=== PATIENT | female | born 1950 | race Two or more races ===

== ENCOUNTER 2020-10-09 18:46 | Emergency (ER) | payer OTHER ==
[~2020-10-09] VITALS: Ht 167.6 cm; Wt 76.2 kg
--- NOTE | 2020-10-09 19:15 | NUR ---
ELIZABETH FROM HOME TO ER BED 6. AAOX4. NOT IN RESP DISTRESS. BROUGHT IN FOR L ANTERIOR THIGH PAIN S/P GLF X 3 HOURS AGO. PT WAS PLAYING WITH A CHILD AND FELL OF THE COUCH LANDING ON HER L HIP. PAIN IS 8/10. NOTED SLIGHT SHORTENING ON L LEG BUT NO ROTATION. ROM IS LIMITED D/T PAIN. PEDAL PULSE APPRECIATED. MD WAS AT THE BEDSIDE FOR EVAL. ORDERS RECEIVED, NOTED AND CARREID OUT.
[2020-10-09] MEDS ORDERED: ONDANSETRON 4 MG TAB.RAPDIS ONE (19:27)
[2020-10-09] MEDS ORDERED: HYDROCODONE/APAP 5/325MG TABLET ONE (19:27)
[2020-10-09] MEDS ORDERED: HYDROCODONE/APAP 5/325MG TABLET PO ONE (19:30)
[2020-10-09] MEDS ORDERED: ONDANSETRON 4 MG TAB.RAPDIS SL ONE (19:30)
--- NOTE | 2020-10-09 19:54 | NUR ---
PT REFUSED TO HAVE A LEE CATH.
[2020-10-09 19:58] LABS: BASOPHILS # (AUTO) 0.1 K/uL (0.0-0.2); BASOPHILS % (AUTO) 0.6 % (0.0-2.0); EOSINOPHILS % (AUTO) 0.1 % (0.0-6.0); HEMATOCRIT 38 % (33-45); HEMOGLOBIN 12.6 g/dL (11.5-14.8); LYMPHOCYTES # (AUTO) 1.4 K/uL (0.8-4.8); LYMPHOCYTES % (AUTO) 11.8 % (20.0-44.0); MEAN CORPUSCULAR HGB CONC 33 g/dl (31.0-36.0); MEAN CORPUSCULAR VOLUME 91 fL (82-100); MONOCYTES # (AUTO) 0.5 K/uL (0.1-1.30); MONOCYTES % (AUTO) 4.1 % (2.0-12.0); NEUTROPHILS # (AUTO) 10.1 K/uL (1.8-8.9); NEUTROPHILS % (AUTO) 83.4 % (43.0-81.0); PLATELET COUNT (AUTO) 229 K/uL (150-450); WHITE BLOOD COUNT (AUTO) 12.1 K/uL (4.3-11.0)
[2020-10-09 20:07] LABS: CALCIUM, SERUM 9.3 mg/dL (8.5-10.1); POTASSIUM 4.1 mmol/L (3.5-5.1)
[2020-10-09] MEDS ORDERED: IV NS 0.9% 1,000 ML IV ONE (20:30)
--- NOTE | 2020-10-09 23:24 | NUR ---
PER CM, DANIEL PRESBYTERIAN WILL CALL
--- NOTE | 2020-10-10 00:39 | NUR ---
refaxed images to [facility]
--- NOTE | 2020-10-10 01:39 | NUR ---
PT ACCEPTED TO [facility] BY DR SHAH. BED 431. # FOR REPORT [phone]. [facility] ETA [id number]
--- NOTE | 2020-10-10 02:19 | NUR ---
gave report to SABRINA Doe for bird at [facility]
[2020-10-10] MEDS ORDERED: MORPHINE SULFATE INJ 4 MG/ML DISP.SYRIN ONE (02:24)
[2020-10-10] MEDS ORDERED: ONDANSETRON HCL/PF 4 MG/2 ML VIAL ONE (02:24)
[2020-10-10] MEDS ORDERED: HYDROCODONE/APAP 5/325MG TABLET ONE (02:26)
[2020-10-10 02:27] VITALS: BP 146/72
--- NOTE | 2020-10-10 02:27 | NUR ---
transport at bedside report given to [facility].
[2020-10-10] MEDS ORDERED: MORPHINE SULFATE INJ 2 MG/ML DISP.SYRIN IV ONE (02:30)
[2020-10-10] MEDS ORDERED: ONDANSETRON HCL/PF 4 MG/2 ML VIAL IV ONE (02:30)
[2020-10-10] MEDS ORDERED: HYDROCODONE/APAP 5/325MG TABLET PO ONE (02:30)
== END 2020-10-10 03:12 | disposition short-term general hospital (02) ==
LOC: ER 19:30
DX: S72.012A Unspecified intracapsular fracture of left femur, initial encounter for closed fracture (principal); W01.0XXA Fall on same level from slipping, tripping and stumbling without subsequent striking against object, initial encounter; Y92.003 Bedroom of unspecified non-institutional (private) residence as the place of occurrence of the external cause; E86.0 Dehydration; I11.9 Hypertensive heart disease without heart failure; F41.9 Anxiety disorder, unspecified; R00.0 Tachycardia, unspecified; R94.31 Abnormal electrocardiogram [ECG] [EKG]; Z20.822 Contact with and (suspected) exposure to COVID-19; Z88.0 Allergy status to penicillin
CPT/HCPCS: 36415; 71045; 73503; 73552; 80048; 85025; 85730; 87081; 87426; 93005; 96360; 99291; C9803; J2405; J7030; Q0162; 73502; J2270